=== PATIENT | female | born 1955 | race Hispanic/Latino ===

== ENCOUNTER 2018-09-22 12:43 | Emergency (ER) | payer MEDICARE, OTHER ==
[2018-09-22 12:43] VITALS: BMI 29.0
[2018-09-22 12:48] VITALS: TEMP 97.9
--- NOTE | 2018-09-22 13:19 | ED PDOC ---
HPI: Psych/Substance Abuse Time Seen by Provider: 09/22/18 12:54 Chief Complaint (Nursing): Psychiatric Evaluation Chief Complaint (Provider): depressed History Per: Patient History/Exam Limitations: no limitations Onset/Duration Of Symptoms: Days (x1) Current Symptoms Are (Timing): Still Present Associated Symptoms: Depression. denies: Suicidal Thoughts, Suicidal Plan Additional Complaint(s): Renee Pearson is a 63 year old female, with a past medical history of diabetes and HTN, who presents to the emergency department complaining of feeling depressed since yesterday after she lost her partner of x20 yrs. Patient denies any suicidal or homicidal ideation. No further medical complaints. PMD: Tod Jurado Past Medical History Reviewed: Historical Data, Nursing Documentation, Vital Signs Vital Signs: Last Vital Signs Temp 97.9 F 09/22/18 12:46 Pulse 124 H 09/22/18 12:46 Resp 22 09/22/18 12:46 BP 143/93 H 09/22/18 12:46 Pulse Ox 93 L 09/22/18 12:46 - Medical History PMH: Anxiety, Arthritis, Asthma, Depression, Diabetes, HTN Denies: Chronic Kidney Disease - Surgical History Surgical History: Cholecystectomy - Family History Family History: States: Unknown Family Hx - Social History Current smoker - smoking cessation education provided: No Alcohol: None Drugs: Denies - Immunization History Hx Tetanus Toxoid Vaccination: No Hx Influenza Vaccination: No Hx Pneumococcal Vaccination: No - Home Medications Home Medications: Ambulatory Orders Medication Instructions Recorded Budesonide/Formoterol Fumarate 1 aer IH PRN PRN 09/21/18 [Symbicort] Famotidine [Pepcid] 40 mg PO HS 09/21/18 Glimepiride [amaRYL] 4 mg PO DAILY 09/21/18 Oxycodone HCl/Acetaminophen 1 each PO Q6 09/21/18 [Percocet 7.5-325 mg Tablet] Sertraline [Zoloft] 50 mg PO DAILY 09/21/18 Valsartan [Diovan] 320 mg PO DAILY 09/21/18 Zolpidem [Ambien] 10 mg PO HS 09/21/18 - Allergies Allergies/Adverse Reactions: Allergies Allergy/AdvReac Type Severity Reaction Status Date / Time No Known Allergies Allergy Unverified 09/21/18 17:30 Review of Systems ROS Statement: Except As Marked, All Systems Reviewed And Found Negative Psych: Positive for: Depression. Negative for: Suicidal ideation (or homicidal ideation) Physical Exam - Reviewed Nursing Documentation Reviewed: Yes Vital Signs Reviewed: Yes - Physical Exam Appears: Positive for: No Acute Distress Head Exam: Positive for: ATRAUMATIC, NORMAL INSPECTION, NORMOCEPHALIC Skin: Positive for: Normal Color, Warm, Dry Eye Exam: Positive for: Normal appearance, EOMI, PERRL Neck: Positive for: Normal, Painless ROM, Supple Cardiovascular/Chest: Positive for: Regular Rate, Rhythm. Negative for: Murmur Respiratory: Positive for: Normal Breath Sounds. Negative for: Respiratory Distress Gastrointestinal/Abdominal: Positive for: Normal Exam, Soft. Negative for: Tenderness Back: Positive for: Normal Inspection. Negative for: L CVA Tenderness, R CVA Tenderness, Vertebral Tenderness Extremity: Positive for: Normal ROM (upper and lower extremities). Negative for: Deformity, Swelling Neurologic/Psych: Positive for: Alert, Oriented, Other (resting tremor). Negative for: Motor/Sensory Deficits - ECG O2 Sat by Pulse Oximetry: 93 (RA) Pulse Ox Interpretation: Abnormal Medical Decision Making Medical Decision Making: Time: 12:54 Initial Impression: Will have crisis evaluate Initial Plan: --Crisis evaluation --Reevaluation Scribe Attestation: Documented by Fede Stephens, acting as a scribe for Kelvin Madrid MD Provider Scribe Attestation: All medical record entries made by the Scribe were at my direction and personally dictated by me. I have reviewed the chart and agree that the record accurately reflects my personal performance of the history, physical exam, medical decision making, and the department course for this patient. I have also personally directed, reviewed, and agree with the discharge instructions and disposition. Disposition - Clinical Impression Clinical Impression: Adjustment disorder - Patient ED Disposition Is Patient to be Admitted: No Counseled Patient/Family Regarding: Diagnosis, Need For Followup - Disposition Referrals: Community [facility] [Outside] Disposition: Routine/Home Disposition Time: 14:06 Condition: FAIR Instructions: Adjustment Disorder Forms: [employer] (Iraqi)
[2018-09-22 14:18] VITALS: BP 140/78; PULSE 98; RESP 19; O2SAT 98
== END 2018-09-22 14:39 | disposition home or self-care (01) ==
LOC: H.ER 12:43
DX: F43.20 Adjustment disorder, unspecified (principal)